=== PATIENT | female | born 1995 | race Caucasian/White ===

== ENCOUNTER 2025-04-02 10:54 | Outpatient (CLI) | payer BC, SELFPAY | END 2025-04-02 10:55 | disposition home or self-care (01) | LOC: NFLDREF 10:54 | PROVIDERS: Visit Provider Registered Nurse | DX: Z34.93 Encounter for supervision of normal pregnancy, unspecified, third trimester (principal) | CPT/HCPCS: 87086 ==

== ENCOUNTER 2025-04-28 18:55 | Outpatient (CLI) | payer BC, SELFPAY ==
[2025-04-29 18:43] LABS: Strep B DNA Probe Negative (Negative)
[2025-04-29 19:16] LABS: Strep B Susceptibility Needed? No
== END 2025-04-28 18:56 | disposition home or self-care (01) ==
LOC: NFLDREF 18:55
PROVIDERS: Visit Provider Physician Assistant
DX: Z34.93 Encounter for supervision of normal pregnancy, unspecified, third trimester (principal)
CPT/HCPCS: 87081; 87653